=== PATIENT | male | born 1955 | race African-American/Black ===

== ENCOUNTER 2017-01-29 02:05 | Inpatient (IN) | payer BC, OTHER ==
[~2017-01-29] VITALS: Ht 172.7 cm; Wt 92.5 kg
[2017-01-29 03:10] LABS: BASO % 1 % (0-3); EOS % 4 % (0-3); HEMATOCRIT 39.5 % (39.0-53.0); HEMOGLOBIN 13.1 g/dL (13.0-17.5); LYMPH # 1.4 x10^3/uL (1.0-4.8); LYMPH % 28 % (24-48); MEAN CORPUSCULAR HEMOGLOBIN 30 pg (25-35); MEAN CORPUSCULAR HGB CONC 33 g/dL (31-37); MEAN CORPUSCULAR VOLUME 89 fL (79-100); MONO % 7 % (0-9); NEUT % 60 % (31-73); PLATELET COUNT 300 x10^3/uL (140-400); RED BLOOD COUNT 4.43 x10^6/uL (4.30-5.70); RED CELL DISTRIBUTION WIDTH 14.5 % (11.5-14.5); WHITE BLOOD COUNT 4.8 x10^3/uL (4.0-11.0)
[2017-01-29 03:34] LABS: PROTHROMBIN TIME PATIENT 12.5 SEC (11.7-14.0)
[2017-01-29 03:36] LABS: CALCIUM 9.4 mg/dL (8.5-10.1); CREATININE 1.1 mg/dL (0.7-1.3); GFR 82.6; POTASSIUM 4.2 mmol/L (3.5-5.1)
[2017-01-29 03:42] LABS: ALBUMIN 4.5 g/dL (3.4-5.0); DIRECT BILIRUBIN 0.1 mg/dL (0.0-0.2); TOTAL BILIRUBIN 0.5 mg/dL (0.2-1.0); TOTAL PROTEIN 7.5 g/dL (6.4-8.2)
--- NOTE | 2017-01-29 04:14 | PHYS DOC ---
Past Medical History Past Medical History: Diabetes-Type II, High Cholesterol, Hypertension Past Surgical History: No Surgical History Alcohol Use: Rarely Drug Use: None Adult General Chief Complaint Chief Complaint: CHEST PAIN HPI HPI 61-year-old male presenting to the emergency department today with chest pain. He describes the chest pain on his right side that is sharp shooting nonradiating intermittent and without a alleviating factors. He denies unilateral leg swelling hemoptysis or personal history of blood clotting disorders. He denies it being worse when he lays down. He denies fevers chills or cough. Patient has a history of diabetes and cholesterol with high blood pressure. He denies family history of heart disease. He has a long smoking history. Review of systems is negative for fevers chills cough abdominal pain nausea vomiting or diaphoresis. All other review of systems is negative unless otherwise noted in history of present illness. ED course: 61-year-old gentleman presenting to the emergency department today with chest pain. On arrival the patient was afebrile saturating well and comfortable. On examination, regular rate and rhythm. Abdomen is soft and nontender. EKG reviewed by myself shows sinus rhythm with a regular rate. ST segments are congruent. T-wave flattening in lead 3 and aVF. Chest x-ray obtained and reviewed by myself shows no obvious infiltrate or pneumothorax. Blood work obtained which showed negative troponin. Negative initial workup. Heart score calculated below. Patient was then admitted for serial troponins and cardiac consultation. I have assessed this patient clinically and believe that their condition requires an admission to the hospital. After consulting the admitting physician about this case, they have asked that I admit this patient to their service as an inpatient based on the clinical presentation and my impression. HEART SCORE History Slightly suspicious 0 Moderately suspicious +1 Highly suspicious +2 EKG 1 point: No ST depression but LBBB, LVH, repolarization changes (ex: digoxin); 2 points: ST depression/elevation not due to LBBB, LVH, or digoxin Normal 0 Non-specific repolarization disturbance +[address] depression +2 Age <45 0 45-65 +1 65 +2 Risk factors Risk factors: HTN, hypercholesterolemia, DM, obesity (BMI >30 kg/m), smoking (current, or smoking cessation 3 mo), positive family history (parent or sibling with CVD before age 65); atherosclerotic disease: prior IA, PCI/CABG, CVA/TIA, or peripheral arterial disease No known risk factors 0 1-2 risk factors +1 3 risk factors or history of atherosclerotic disease +2 Initial troponin Use local assays and corresponding cutoffs normal limit 0 1-2 normal limit +1 >2 normal limit +2 Total points : 4 Review of Systems Review of Systems SEE ABOVE. Current Medications Current Medications Current Medications Medications (Trade) Dose Ordered Sig/Daniel Start Time Stop Time Status Last Admin Dose Admin Morphine Sulfate 2 mg PRN Q2HR PRN 01/29/17 04:15 01/30/17 04:14 Ondansetron HCl (Zofran) 4 mg PRN Q8HRS PRN 01/29/17 04:15 01/30/17 04:14 Allergies Allergies Allergies Coded Allergies Type Severity Reaction Last Updated Verified No Known Drug Allergies 02/09/14 No Physical Exam Physical Exam SEE ABOVE Constitutional: Well developed, well nourished, no acute distress, non-toxic appearance. HENT: Normocephalic, atraumatic, bilateral external ears normal, oropharynx moist, no oral exudates, nose normal. [] Eyes: PERRLA, EOMI, conjunctiva normal, no discharge. [] Neck: Normal range of motion, no tenderness, supple, no stridor. Cardiovascular:Heart rate regular rhythm, no murmur [] Lungs & Thorax: Bilateral breath sounds clear to auscultation Abdomen: Bowel sounds normal, soft, no tenderness, no masses, no pulsatile masses. [] Skin: Warm, dry, no erythema, no rash. [] Back: No tenderness, no CVA tenderness. Extremities: No tenderness, no cyanosis, no clubbing, ROM intact, no edema. Neurologic: Alert and oriented X 3, normal motor function, normal sensory function, no focal deficits noted. [] Psychologic: Affect normal, judgement normal, mood normal. [] Current Patient Data Vital Signs Vital Signs Date Time Temp Pulse Resp B/P (MAP) Pulse Ox O2 Delivery O2 Flow Rate FiO2 01/29/17 02:33 97.8 74 17 125/64 (84) 97 Room Air 97.8 Lab Values Laboratory Tests Test 01/29/17 02:58 White Blood Count 4.8 x10^3/uL (4.0-11.0) Red Blood Count 4.43 x10^6/uL (4.30-5.70) Hemoglobin 13.1 g/dL (13.0-17.5) Hematocrit 39.5 % (39.0-53.0) Mean Corpuscular Volume 89 fL (79-100) Mean Corpuscular Hemoglobin 30 pg (25-35) Mean Corpuscular Hemoglobin Concent 33 g/dL (31-37) Red Cell Distribution Width 14.5 % (11.5-14.5) Platelet Count 300 x10^3/uL (140-400) Neutrophils (%) (Auto) 60 % (31-73) Lymphocytes (%) (Auto) 28 % (24-48) Monocytes (%) (Auto) 7 % (0-9) Eosinophils (%) (Auto) 4 % (0-3) H Basophils (%) (Auto) 1 % (0-3) Neutrophils # (Auto) 2.9 x10^3uL (1.8-7.7) Lymphocytes # (Auto) 1.4 x10^3/uL (1.0-4.8) Monocytes # (Auto) 0.4 x10^3/uL (0.0-1.1) Eosinophils # (Auto) 0.2 x10^3/uL (0.0-0.7) Basophils # (Auto) 0.0 x10^3/uL (0.0-0.2) Prothrombin Time 12.5 SEC (11.7-14.0) Prothrombin Time INR 1.0 (0.8-1.1) PTT 36 SEC (24-38) Sodium Level 139 mmol/L (136-145) Potassium Level 4.2 mmol/L (3.5-5.1) Chloride Level 101 mmol/L (98-107) Carbon Dioxide Level 29 mmol/L (21-32) Anion Gap 9 (6-14) Blood Urea Nitrogen 16 mg/dL (8-26) Creatinine 1.1 mg/dL (0.7-1.3) Estimated GFR (Cockcroft-Gault) 82.6 Glucose Level 219 mg/dL (70-99) H Calcium Level 9.4 mg/dL (8.5-10.1) Total Bilirubin 0.5 mg/dL (0.2-1.0) Direct Bilirubin 0.1 mg/dL (0.0-0.2) Aspartate Amino Transferase (AST) 25 U/L (15-37) Alanine Aminotransferase (ALT) 36 U/L (16-63) Alkaline Phosphatase 142 U/L (46-116) H Troponin I Quantitative < 0.017 ng/mL (0.000-0.055) UM-Bwp-A-Type Natriuretic Peptide 51 pg/mL (0-124) Total Protein 7.5 g/dL (6.4-8.2) Albumin 4.5 g/dL (3.4-5.0) Lipase 106 U/L (73-393) Laboratory Tests 01/29/17 02:58 Laboratory Tests 01/29/17 02:58 EKG EKG [] Radiology/Procedures Radiology/Procedures [] Course & Med Decision Making Course & Med Decision Making Pertinent Labs and Imaging studies reviewed. (See chart for details) [] Dragon Disclaimer Dragon Disclaimer This electronic medical record was generated, in whole or in part, using a voice recognition dictation system. Departure Departure Impression: Primary Impression: Chest pain Disposition: 01 HOME, SELF-CARE Admitting Physician: Other (reusch) Condition: STABLE Referrals: NO PCP (PCP) PAXTON GUILLEN MD Jan 29, 2017 04:14
[2017-01-29] MEDS ORDERED: MORPHINE SULFATE 2 MG/ML DISP.SYRIN. IV PRN (04:15)
[2017-01-29] MEDS ORDERED: ONDANSETRON PF 4 MG/2 ML VIAL. IV PRN (04:15)
--- NOTE | 2017-01-29 07:59 | RAD ---
CHEST AP ONLY Clinical Indication: chest pain Comparison: None. Technique: Frontal view of the chest is obtained. Findings: No focal consolidation, pleural effusion or pneumothorax is seen. Cardiomediastinal silhouette is within normal limits of size. Visualized osseous structures and overlying soft tissues demonstrate no acute finding. IMPRESSION: No focal consolidation or acute radiographic finding.
[2017-01-29 08:00] VITALS: BP 111/67
--- NOTE | 2017-01-29 09:10 | EKG ---
[facility] [address] [place] [address] Test Date: 2017-01-29 Test Time: 02:24:54 Pat Name: ALDEN HERNANDEZ Department: Room: Gender: M Taxonomist: : 1955 Requested By: PAXTON GUILLEN Order Number: [id number] Reading MD: Measurements Intervals [place] Rate: 75 P: 63 WV: 188 QRS: 47 QRSD: 78 T: 26 QT: 374 QTc: 420 Interpretive Statements SINUS RHYTHM NO SPECIFIC ECG ABNORMALITIES RI6.01 No previous ECG available for comparison
[2017-01-29] MEDS ORDERED: CETI10TA22 PO (10:25)
[2017-01-29] MEDS ORDERED: ALBI50PE SQ (10:25)
[2017-01-29] MEDS ORDERED: METF-620 PO (10:25)
[2017-01-29] MEDS ORDERED: LOSA25TA4 PO (10:25)
[2017-01-29] MEDS ORDERED: GLIM4TAB2 PO (10:25)
[2017-01-29] MEDS ORDERED: SIMV40TA3 PO (10:25)
--- NOTE | 2017-01-29 10:52 | CONS ---
DATE OF CONSULTATION: 01/29/2017 REASON FOR CONSULTATION: Chest pain. HISTORY OF PRESENT ILLNESS: Chest pain onset Tuesday at 11:00 a.m. while sleeping, upon waking. Pain was right anterior chest, radiation to thoracic back bilaterally. The patient described it as cramping, 10/10. It was waxing and waning, lasting hours, provoked with supine position and while lifting boxes, otherwise nonexertional, palliative with naproxen, now resolving and 5/10. Prior EKG years ago was normal. No history of stress test, echocardiogram or catheterization. His similar episode of pain 15 years ago presented with shortness of breath with sharp substernal chest pain, presented to the ED and was diagnosed with GERD, came to the ED today at 2:00 a.m. Notes some shortness of breath. It is mild. Denies any diaphoresis, nausea, vomiting, syncope, palpitations, fever, edema, abdominal pain, focal weakness, urinary changes, no recent trauma, no recent surgeries, travel or sick contacts. PAST MEDICAL HISTORY: GERD, type 2 diabetes for 7 years, hypertension, hyperlipidemia, back pain, no history of malignancy. PAST SURGICAL HISTORY: None. ALLERGIES: No allergies to medications. FAMILY HISTORY: Sister, congestive heart failure, alive; father, , age 74, type 2 diabetes complications associated; mother , unknown age or cause of . SOCIAL HISTORY: Former tobacco smoker 7 years ago, quit, rare alcohol usage, no drugs. No history of cocaine use. MEDICATIONS: Metformin, glimepiride, simvastatin, losartan. PHYSICAL EXAMINATION: VITAL SIGNS: 97.5, heart rate 79, respiratory rate 18, 111/67 blood pressure and O2 of 100% on room air. GENERAL: No acute distress.. HEENT: Mucous membranes moist. PULM: Clear to auscultation in all alvarez. No rales, wheezes or rhonchi. CARDIAC: Regular rate and rhythm, no murmurs. Pulses intact in bilateral upper and lower extremities. ABDOMEN: No tenderness in all alvarez. No masses, no guarding. EXTREMITIES: Lower extremity, no edema. LABORATORY DATA: CBC is normal. CMP is normal with mild elevation of alkaline phosphatase and glucose. Troponin is normal. Chest x-ray was unremarkable. EKG is pending. IMPRESSION: 1. Atypical chest pain in a type 2 diabetic male with multiple risk factors. 2. Hypertension. 3. Dyslipidemia. 4. Type 2 diabetes. Differential include gastroesophageal reflux disease and thoracic back pain. RECOMMENDATIONS: Continue home medical therapy. Treadmill nuclear stress test. CELIA RIVERO MD DR: OSCAR/ernesto JOB#: [id number] / [id number]
[2017-01-29 11:40] VITALS: BP 120/72
[2017-01-29] MEDS ORDERED: DEXTROSE 50% 25 GM / 50ML DISP.SYRIN. IV PRN (12:45)
--- NOTE | 2017-01-29 12:49 | PDOC1 ---
History and Physical Date of Admission Date of Admission 01/29/17 Identification/Chief Complaint Chief Complaint chest pain Problems: Source Source: Chart review, Patient History of Present Illness History of Present Illness 61-year-old male presenting to the emergency department today with chest pain. He describes the chest pain on his right side that is sharp shooting nonradiating intermittent and without a alleviating factors. He denies unilateral leg swelling hemoptysis or personal history of blood clotting disorders. He denies it being worse when he lays down. He denies fevers chills or cough. Patient has a history of diabetes and cholesterol with high blood pressure. He denies family history of heart disease. He has a long smoking history. he does have nausea , pain since yesterday after eating [employer] , denies being bothered by greasy food in past, no previous gallbladder disease Hx, + ETOH occasional , none lately Past Medical History Cardiovascular: HTN, Hyperlipidemia Pulmonary: COPD GI: GERD Heme/Onc: No pertinent hx Hepatobiliary: No pertinent hx Psych: No pertinent hx Rheumatologic: No pertinent hx Infectious disease: No pertinent hx ENT: No pertinent hx Renal/: Chronic renal insuff Endocrine: Diabetes Dermatology: No pertinent hx Family History Family History: Diabetes, High Cholestrol, Hypertension Social History Smoke: 1 pack per day ALCOHOL: occassional Drugs: None Current Problem List Problem List Problems Medical Problems: (1) Chest pain Status: Acute Current Medications Current Medications Current Medications Medications (Trade) Dose Ordered Sig/Daniel Start Time Stop Time Status Last Admin Dose Admin Morphine Sulfate 2 mg PRN Q2HR PRN 01/29/17 04:15 01/30/17 04:14 Ondansetron HCl (Zofran) 4 mg PRN Q8HRS PRN 01/29/17 04:15 01/30/17 04:14 Allergies Allergies Allergies Coded Allergies Type Severity Reaction Last Updated Verified No Known Drug Allergies 02/09/14 No ROS Review of System CONSTITUTIONAL: No fever or chills EYES: No recent changes SKIN: No rash or itching CARDIOVASCULAR: see HPI , NO syncope, palpitations, or edema RESPIRATORY: No SOB or cough GASTROINTESTINAL: + nausea, NO vomiting + RUQ pain NEUROLOGICAL: No headaches or weakness ENDOCRINE: No cold or heat intolerance GENITOURINARY: No urgency or frequency of urination MUSCULOSKELETAL: No back pain or joint pain LYMPHATICS: No enlarged lymph nodes PSYCHIATRIC: No anxiety or depression Physical Exam Physical Exam GEN.: No apparent distress. Alert and oriented. HEENT: Head is normocephalic, atraumatic NECK: Supple. LUNGS: Clear to auscultation. HEART: RRR, S1, S2 present. Peripheral pulses intact ABDOMEN: Soft, mild RUQ tenderness. Positive bowel sounds. EXTREMITIES: Without any cyanosis. NEUROLOGIC: Normal speech, normal tone PSYCHIATRIC: Normal affect, normal mood. SKIN: No ulcerations Vitals Vitals Vital Signs Date Time Temp Pulse Resp B/P (MAP) Pulse Ox O2 Delivery O2 Flow Rate FiO2 01/29/17 11:40 98.1 74 18 120/72 (88) 97 Room Air 98.1 Labs Labs Laboratory Tests Test 01/29/17 02:58 01/29/17 08:08 01/29/17 10:30 01/29/17 11:54 White Blood Count 4.8 x10^3/uL (4.0-11.0) Red Blood Count 4.43 x10^6/uL (4.30-5.70) Hemoglobin 13.1 g/dL (13.0-17.5) Hematocrit 39.5 % (39.0-53.0) Mean Corpuscular Volume 89 fL (79-100) Mean Corpuscular Hemoglobin 30 pg (25-35) Mean Corpuscular Hemoglobin Concent 33 g/dL (31-37) Red Cell Distribution Width 14.5 % (11.5-14.5) Platelet Count 300 x10^3/uL (140-400) Neutrophils (%) (Auto) 60 % (31-73) Lymphocytes (%) (Auto) 28 % (24-48) Monocytes (%) (Auto) 7 % (0-9) Eosinophils (%) (Auto) 4 % (0-3) Basophils (%) (Auto) 1 % (0-3) Neutrophils # (Auto) 2.9 x10^3uL (1.8-7.7) Lymphocytes # (Auto) 1.4 x10^3/uL (1.0-4.8) Monocytes # (Auto) 0.4 x10^3/uL (0.0-1.1) Eosinophils # (Auto) 0.2 x10^3/uL (0.0-0.7) Basophils # (Auto) 0.0 x10^3/uL (0.0-0.2) Prothrombin Time 12.5 SEC (11.7-14.0) Prothromb Time International Ratio 1.0 (0.8-1.1) Activated Partial Thromboplast Time 36 SEC (24-38) Sodium Level 139 mmol/L (136-145) Potassium Level 4.2 mmol/L (3.5-5.1) Chloride Level 101 mmol/L (98-107) Carbon Dioxide Level 29 mmol/L (21-32) Anion Gap 9 (6-14) Blood Urea Nitrogen 16 mg/dL (8-26) Creatinine 1.1 mg/dL (0.7-1.3) Estimated GFR (Cockcroft-Gault) 82.6 Glucose Level 219 mg/dL (70-99) Calcium Level 9.4 mg/dL (8.5-10.1) Total Bilirubin 0.5 mg/dL (0.2-1.0) Direct Bilirubin 0.1 mg/dL (0.0-0.2) Aspartate Amino Transf (AST/SGOT) 25 U/L (15-37) Alanine Aminotransferase (ALT/SGPT) 36 U/L (16-63) Alkaline Phosphatase 142 U/L (46-116) Troponin I Quantitative < 0.017 ng/mL (0.000-0.055) < 0.017 ng/mL (0.000-0.055) GV-Hzy-E-Type Natriuretic Peptide 51 pg/mL (0-124) Total Protein 7.5 g/dL (6.4-8.2) Albumin 4.5 g/dL (3.4-5.0) Lipase 106 U/L (73-393) Glucose (Fingerstick) 97 mg/dL (70-99) 271 mg/dL (70-99) Laboratory Tests Test 01/29/17 02:58 01/29/17 08:08 01/29/17 10:30 01/29/17 11:54 White Blood Count 4.8 x10^3/uL (4.0-11.0) Red Blood Count 4.43 x10^6/uL (4.30-5.70) Hemoglobin 13.1 g/dL (13.0-17.5) Hematocrit 39.5 % (39.0-53.0) Mean Corpuscular Volume 89 fL (79-100) Mean Corpuscular Hemoglobin 30 pg (25-35) Mean Corpuscular Hemoglobin Concent 33 g/dL (31-37) Red Cell Distribution Width 14.5 % (11.5-14.5) Platelet Count 300 x10^3/uL (140-400) Neutrophils (%) (Auto) 60 % (31-73) Lymphocytes (%) (Auto) 28 % (24-48) Monocytes (%) (Auto) 7 % (0-9) Eosinophils (%) (Auto) 4 % (0-3) Basophils (%) (Auto) 1 % (0-3) Neutrophils # (Auto) 2.9 x10^3uL (1.8-7.7) Lymphocytes # (Auto) 1.4 x10^3/uL (1.0-4.8) Monocytes # (Auto) 0.4 x10^3/uL (0.0-1.1) Eosinophils # (Auto) 0.2 x10^3/uL (0.0-0.7) Basophils # (Auto) 0.0 x10^3/uL (0.0-0.2) Prothrombin Time 12.5 SEC (11.7-14.0) Prothromb Time International Ratio 1.0 (0.8-1.1) Activated Partial Thromboplast Time 36 SEC (24-38) Sodium Level 139 mmol/L (136-145) Potassium Level 4.2 mmol/L (3.5-5.1) Chloride Level 101 mmol/L (98-107) Carbon Dioxide Level 29 mmol/L (21-32) Anion Gap 9 (6-14) Blood Urea Nitrogen 16 mg/dL (8-26) Creatinine 1.1 mg/dL (0.7-1.3) Estimated GFR (Cockcroft-Gault) 82.6 Glucose Level 219 mg/dL (70-99) Calcium Level 9.4 mg/dL (8.5-10.1) Total Bilirubin 0.5 mg/dL (0.2-1.0) Direct Bilirubin 0.1 mg/dL (0.0-0.2) Aspartate Amino Transf (AST/SGOT) 25 U/L (15-37) Alanine Aminotransferase (ALT/SGPT) 36 U/L (16-63) Alkaline Phosphatase 142 U/L (46-116) Troponin I Quantitative < 0.017 ng/mL (0.000-0.055) < 0.017 ng/mL (0.000-0.055) VF-Nfg-O-Type Natriuretic Peptide 51 pg/mL (0-124) Total Protein 7.5 g/dL (6.4-8.2) Albumin 4.5 g/dL (3.4-5.0) Lipase 106 U/L (73-393) Glucose (Fingerstick) 97 mg/dL (70-99) 271 mg/dL (70-99) VTE Prophylaxis Ordered VTE Prophylaxis Devices: Yes VTE Pharmacological Prophylaxi: Yes Assessment/Plan Assessment/Plan 1- RUQ pain and CP, start PPI, chech abd US, C.V work up due to risk factors 2-HTN 3-HLD 4-DM II 5- Obesity 6- high alk akhils CRISTINA DANIELLE MD Jan 29, 2017 12:49
[2017-01-29] MEDS: INSULIN ASPART 300 UNITS/3 ML INSULN.PEN SQ SCH ×2 (13:00→17:00)
[2017-01-29] MEDS: ENOXAPARIN 40 MG/0.4 ML SYRINGE. SQ SCH (13:00)
[2017-01-29] MEDS: GLIMEPIRIDE 2 MG TABLET. PO SCH (14:00)
[2017-01-29] MEDS: ASPIRIN ENTERIC COATED 81 MG TABLET.DR. PO SCH (14:00)
[2017-01-29] MEDS: LOSARTAN POTASSIUM 25 MG TABLET. PO SCH (14:00)
[2017-01-29] MEDS: PANTOPRAZOLE 40 MG TABLET.DR. PO SCH (14:01)
[2017-01-29] MEDS: CETIRIZINE HCL 10 MG TABLET. PO SCH (14:01)
[2017-01-29 14:56] VITALS: BP 126/66
[2017-01-29 19:45] VITALS: BP 120/69
[2017-01-29] MEDS: SIMVASTATIN 40 MG TABLET. PO SCH (20:09)
[2017-01-29 23:46] VITALS: BP 111/64
[2017-01-30 03:35] VITALS: BP 93/59
[2017-01-30 04:44] LABS: BASO % 1 % (0-3); EOS % 5 % (0-3); HEMOGLOBIN 12.7 g/dL (13.0-17.5); LYMPH # 1.1 x10^3/uL (1.0-4.8); LYMPH % 28 % (24-48); MEAN CORPUSCULAR HEMOGLOBIN 30 pg (25-35); MEAN CORPUSCULAR HGB CONC 34 g/dL (31-37); MEAN CORPUSCULAR VOLUME 88 fL (79-100); MONO % 8 % (0-9); NEUT % 59 % (31-73); PLATELET COUNT 266 x10^3/uL (140-400); RED CELL DISTRIBUTION WIDTH 14.6 % (11.5-14.5); WHITE BLOOD COUNT 4.1 x10^3/uL (4.0-11.0)
[2017-01-30 05:13] LABS: ALBUMIN 3.5 g/dL (3.4-5.0); ALBUMIN/GLOBULIN RATIO 1.1 (1.0-1.7); CALCIUM 8.6 mg/dL (8.5-10.1); CREATININE 0.9 mg/dL (0.7-1.3); GFR 104.2; POTASSIUM 3.9 mmol/L (3.5-5.1); TOTAL BILIRUBIN 0.4 mg/dL (0.2-1.0); TOTAL PROTEIN 6.7 g/dL (6.4-8.2)
[2017-01-30 07:02] VITALS: BP 111/65
[2017-01-30] MEDS: INSULIN ASPART 300 UNITS/3 ML INSULN.PEN SQ SCH ×3 (08:00→17:00)
--- NOTE | 2017-01-30 09:58 | RAD ---
ABDOMEN COMPLETE Clinical Indication: RUQ pain, Comparison: None. Technique: Transverse and longitudinal sonography of the abdomen is performed. Findings: Visualized portions of the proximal pancreas demonstrate no focal abnormality. Mid and distal pancreas are obscured. Aorta appears normal in caliber area IVC is documented. The gallbladder demonstrates no intraluminal gallstones, wall thickening or pericholecystic fluid. Main portal vein demonstrates normal directional flow and phasicity. Common bile duct measures 3 mm in diameter. Liver demonstrates diffuse increased echogenicity consistent with steatosis. Liver measures 15.6 cm. The right kidney measures 10.5 x 6.0 x 6.0 cm, without evidence of hydronephrosis. The left kidney measures 10.1 x 5.9 x 5.9 cm, without evidence of hydronephrosis. Spleen measures 8.1 cm. No free fluid is seen within the provided images. IMPRESSION: Hepatic steatosis. No cholelithiasis or hydronephrosis.
[2017-01-30] MEDS: CETIRIZINE HCL 10 MG TABLET. PO SCH (11:00)
[2017-01-30] MEDS: ASPIRIN ENTERIC COATED 81 MG TABLET.DR. PO SCH (11:00)
[2017-01-30] MEDS: LOSARTAN POTASSIUM 25 MG TABLET. PO SCH (11:01)
[2017-01-30] MEDS: GLIMEPIRIDE 2 MG TABLET. PO SCH (11:01)
[2017-01-30] MEDS: PANTOPRAZOLE 40 MG TABLET.DR. PO SCH (11:01)
[2017-01-30 11:05] VITALS: BP 116/64
[2017-01-30] MEDS: ENOXAPARIN 40 MG/0.4 ML SYRINGE. SQ SCH (13:00)
--- NOTE | 2017-01-30 14:39 | RAD ---
APPROVED REPORT Test Type: Exercise Stress Nurse/Tech: Jayshree Palmer R.N. Test Indications: chest pain Cardiac History: htn, dm Medications: see ehr Medical History: see ehr Resting ECG: SR Resting Heart Rate: 67 bpm Resting Blood Pressure: 112/68mmHg Pretest Chest Pain: No chest pain Nurse/Tech Notes lungs cta, heart tones regular, good radial pulse Consent: The procedure was explained to the patient in lay terms. Informed consent was witnessed. Kannan eout was entered into [employer]. History and Stress Test performed by RT Morgan (Nolvia) (N) Stress Symptoms No chest pain or symptoms. POST EXERCISE Reason for Termination: Reached target heart rate Target HR: Yes Max HR: 142 bpm 89% of Maximum Predicted HR: 160 bpm Exercise duration: 5:45 min:sec, Stage Exercise capacity: 7.0METs Max Blood Pressure: 149/85mmHg Blood Pressure response to exercise: Normal blood pressure response during stress. Heart Rate response to exercise: normal Chest Pain: No. Arrhythmia: No. ST Change: Yes. [address] depression in V3-6 during exercise which resolved with rest INTERPRETATION Stress EKG Conclusion: No acute ischemic findings Imaging Protocol IMAGE PROTOCOL: Stress Tc-99m/rest Tc-99m 2 days Rest: Stress: Viability: Radiopharm.Tc99m Sestamibi [id number] Duration 10min. Img Date 01/30/2017 Inj-Img [id number]. Stress Admin Site: IV - Right AntecubitalAdministrator: RT Morgan (R)(N) STRESS DATA End Diast. Vol.107.0mlAv. Heart Rate86.0bpm End Syst. Vol.37.0mlCO Index BSA0.0L/min Myocardial Igua317.0gEject. Klqmluvm97.0% Stress Rates Pk. Fill Rate2.99EDV/secLVtime Pk. Fill 146.48msec Pk. Empty Rate3.81ESV/secLVtime Pk. Eftyo950.95msec 03/02 Pk. Fill1.52EDV/sec Stress Scores Regional WT0.00Summed WT0.00 Regional WM0.00Summed WM1.00 LV Perfusion Normal perfusion at stress Wall Motion Normal LV Perf. Quant 17 Seg. SSS0.00 Stress Defect Extent (% LAD)0.00Rest Defect Extent (% LAD)Rev. Defect Extent (% LAD)0.00 Stress Defect Extent (% LCX) 0.00Rest Defect Extent (% LCX)Rev. Defect Extent (% LCX)0.00 Stress Defect Extent (% RCA)0.00Rest Defect Extent (% RCA)Rev. Defect Extent (% RCA)0.00 Stress Defect Extent (% BRI)0.00Rest Defect Extent (% BRI)Rev. Defect Extent (% BRI)0.00 Other Information Quality:Good Risk Assessment: Low Risk Conclusion 1. No evidence of EKG changes with stress testing. Average exercise capacity. 2. Normal perfusion at stress. 3. Low risk study. 4. EF > 60%.
[2017-01-30 14:48] VITALS: BP 115/55
--- NOTE | 2017-01-30 15:36 | PDOC ---
SUBJECTIVE Subjective continuw with pain mostly RUQ OBJECTIVE Vital Signs Vital Signs Date Time Temp Pulse Resp B/P (MAP) Pulse Ox O2 Delivery O2 Flow Rate FiO2 01/30/17 14:48 98.3 74 17 115/55 (75) 96 Room Air 98.3 01/30/17 11:05 98.6 82 18 116/64 (81) 98 Room Air 98.6 01/30/17 11:01 52 111/65 01/30/17 08:00 Room Air 01/30/17 07:02 98.3 52 17 111/65 (80) 98 Room Air 98.3 01/30/17 03:35 98.2 68 18 93/59 (70) 97 Room Air 98.2 01/30/17 01:12 Room Air 01/29/17 23:46 98.5 63 18 111/64 (80) 95 Room Air 98.5 01/29/17 20:00 Room Air 01/29/17 19:45 98.3 71 20 120/69 (86) 97 Room Air 98.3 I & O Intake and Output 01/30/17 07:00 Intake Total 750 ml Balance 750 ml Intake Oral 750 ml # Voids 4 PHYSICAL EXAM Physical Exam no change ASSESSMENT/PLAN Assessment/Plan 1- RUQ pain and CP, start PPI, abd US negative ,check PIPIDA , cardiac eval in process 2-HTN 3-HLD 4-DM II 5- Obesity 6- high alk phos Problems: COMMENT Lab Laboratory Tests Test 01/29/17 16:00 01/29/17 20:49 01/30/17 03:50 01/30/17 07:02 Troponin I Quantitative < 0.017 ng/mL (0.000-0.055) Glucose (Fingerstick) 171 mg/dL (70-99) 105 mg/dL (70-99) White Blood Count 4.1 x10^3/uL (4.0-11.0) Red Blood Count 4.30 x10^6/uL (4.30-5.70) Hemoglobin 12.7 g/dL (13.0-17.5) Hematocrit 38.0 % (39.0-53.0) Mean Corpuscular Volume 88 fL (79-100) Mean Corpuscular Hemoglobin 30 pg (25-35) Mean Corpuscular Hemoglobin Concent 34 g/dL (31-37) Red Cell Distribution Width 14.6 % (11.5-14.5) Platelet Count 266 x10^3/uL (140-400) Neutrophils (%) (Auto) 59 % (31-73) Lymphocytes (%) (Auto) 28 % (24-48) Monocytes (%) (Auto) 8 % (0-9) Eosinophils (%) (Auto) 5 % (0-3) Basophils (%) (Auto) 1 % (0-3) Neutrophils # (Auto) 2.4 x10^3uL (1.8-7.7) Lymphocytes # (Auto) 1.1 x10^3/uL (1.0-4.8) Monocytes # (Auto) 0.3 x10^3/uL (0.0-1.1) Eosinophils # (Auto) 0.2 x10^3/uL (0.0-0.7) Basophils # (Auto) 0.0 x10^3/uL (0.0-0.2) Sodium Level 138 mmol/L (136-145) Potassium Level 3.9 mmol/L (3.5-5.1) Chloride Level 104 mmol/L (98-107) Carbon Dioxide Level 27 mmol/L (21-32) Anion Gap 7 (6-14) Blood Urea Nitrogen 13 mg/dL (8-26) Creatinine 0.9 mg/dL (0.7-1.3) Estimated GFR (Cockcroft-Gault) 104.2 BUN/Creatinine Ratio 14 (6-20) Glucose Level 150 mg/dL (70-99) Calcium Level 8.6 mg/dL (8.5-10.1) Total Bilirubin 0.4 mg/dL (0.2-1.0) Aspartate Amino Transf (AST/SGOT) 18 U/L (15-37) Alanine Aminotransferase (ALT/SGPT) 27 U/L (16-63) Alkaline Phosphatase 104 U/L (46-116) Total Protein 6.7 g/dL (6.4-8.2) Albumin 3.5 g/dL (3.4-5.0) Albumin/Globulin Ratio 1.1 (1.0-1.7) CRISTINA DANIELLE MD Jan 30, 2017 15:36
[2017-01-30 19:51] VITALS: BP 97/53
[2017-01-30] MEDS: SIMVASTATIN 40 MG TABLET. PO SCH (21:04)
[2017-01-30] MEDS ORDERED: KETOROLAC 30 MG/ML INJ. IV PRN (22:45)
[2017-01-30 23:44] VITALS: BP 100/52
[2017-01-31 03:47] VITALS: BP 101/54
[2017-01-31 06:59] VITALS: BP 118/70
[2017-01-31] MEDS: INSULIN ASPART 300 UNITS/3 ML INSULN.PEN SQ SCH ×3 (08:00→17:00)
--- NOTE | 2017-01-31 08:11 | PDOC ---
SUBJECTIVE Subjective Continues to have achy, crampy pain in the lower R chest/RUQ. Stress test neg. Abd US neg. PIPIDA scan ordered. OBJECTIVE Objective Reviewed. Vital Signs Vital Signs Date Time Temp Pulse Resp B/P (MAP) Pulse Ox O2 Delivery O2 Flow Rate FiO2 01/31/17 06:59 97.6 70 18 118/70 (86) 97 Room Air 97.6 01/31/17 03:47 97.9 58 20 101/54 (70) 98 Room Air 97.9 01/30/17 23:44 98.4 65 20 100/52 (68) 98 Room Air 98.4 01/30/17 20:30 Room Air 01/30/17 19:51 97.6 66 18 97/53 (68) 97 Room Air 97.6 01/30/17 14:48 98.3 74 17 115/55 (75) 96 Room Air 98.3 01/30/17 11:05 98.6 82 18 116/64 (81) 98 Room Air 98.6 01/30/17 11:01 52 111/65 01/30/17 08:00 Room Air I & O Intake and Output 01/31/17 07:00 Intake Total 1480 ml Balance 1480 ml Intake Oral 1480 ml # Voids 5 PHYSICAL EXAM Physical Exam Alert, oriented RRR, no murmur CTAB no crackles, rhonchi or wheezes, Abd soft, NT, ND, minimal tenderness to palpation of the lower R rib cage No edema ASSESSMENT/PLAN Assessment/Plan RUQ pain and CP, PPI, abd US negative, check PIPIDA , stress test negative - suspect MSK, will rule out gallbladder HTN HLD DM II Obesity high alk phos Stop tele. Lidocaine patch for pain. Problems: COMMENT Lab Laboratory Tests Test 01/30/17 11:41 01/30/17 16:53 01/31/17 07:03 Glucose (Fingerstick) 271 mg/dL (70-99) 146 mg/dL (70-99) 100 mg/dL (70-99) RENATO DE LA FUENTE MD Jan 31, 2017 08:11
[2017-01-31] MEDS: GLIMEPIRIDE 2 MG TABLET. PO SCH (08:23)
[2017-01-31] MEDS: CETIRIZINE HCL 10 MG TABLET. PO SCH (08:24)
[2017-01-31] MEDS: ASPIRIN ENTERIC COATED 81 MG TABLET.DR. PO SCH (08:24)
[2017-01-31] MEDS: LOSARTAN POTASSIUM 25 MG TABLET. PO SCH (08:24)
[2017-01-31] MEDS: PANTOPRAZOLE 40 MG TABLET.DR. PO SCH (08:24)
[2017-01-31] MEDS: LIDOCAINE (700MG/PATCH) PATCH. TD SCH (10:29)
[2017-01-31 10:58] VITALS: BP 113/57
[2017-01-31] MEDS: ENOXAPARIN 40 MG/0.4 ML SYRINGE. SQ SCH (11:20)
[2017-01-31 13:16] LABS: HEP A IGM ABDY Negative (Negative)
[2017-01-31 14:58] VITALS: BP 121/64
[2017-01-31 19:50] VITALS: BP 113/65
[2017-01-31] MEDS: SIMVASTATIN 40 MG TABLET. PO SCH (20:36)
[2017-01-31 23:20] VITALS: BP 113/74
[2017-02-01 03:53] VITALS: BP 119/67
[2017-02-01 07:00] VITALS: BP 122/89
[2017-02-01] MEDS: PANTOPRAZOLE 40 MG TABLET.DR. PO SCH (07:30)
[2017-02-01] MEDS: INSULIN ASPART 300 UNITS/3 ML INSULN.PEN SQ SCH ×2 (08:00→11:22)
--- NOTE | 2017-02-01 08:01 | PDOC3 ---
Discharge Summary [facility] Discharge Date: Feb 01, 2017 Admitting Diagnosis RUQ abdominal pain, chest pain Problems: Final Diagnosis RUQ abdominal pain, chest wall pain CONSULTS Tricia Procedures MPI stress test, PIPIDA Brief Hospital Course Mr. Rangel is a 61 old male who presented for admission due to RUQ abdominal pain/chest pain. An MPI stress test was low risk. His pain continued, so a PIPIDA scan was ordered. On day of discharge, results of PIPIDA scan are still pending. Pain has resolved with the lidoderm patch. Pt is agreeable to plan for discharge with follow up in 1 week. Given improvement with lidoderm patch, etiology is most likely musculoskeletal. No change to medications. Problems: CONDITION AT DISCHARGE: Improved Diet Diabetic, cardiac diet Scheduled Cetirizine Hcl (Zyrtec), 1 TAB PO DAILY, (Reported) Glimepiride (Glimepiride), 6 MG PO DAILY, (Reported) Losartan Potassium (Losartan Potassium), 25 MG PO DAILY, (Reported) Metformin Hcl (Metformin Hcl), 1,000 MG PO DAILYWBKFT, (Reported) Simvastatin (Simvastatin), 1 TAB PO QHS, (Reported) Miscellaneous Medications Albiglutide (Tanzeum), 50 MG SQ, (Reported) Follow Up [address] Saavedra or RENATO Fong MD Feb 01, 2017 08:01
[2017-02-01] MEDS ORDERED: NORMAL SALINE IV ONE (08:45)
[2017-02-01] MEDS ORDERED: SINCALIDE IV ONE (08:45)
--- NOTE | 2017-02-01 10:36 | RAD ---
Hepatobiliary scan 02/01/2017 Indication: 4 days right upper quadrant pain Comparison study: Right upper quadrant ultrasound February 08, 2017 Discussion: Imaging over the abdomen was performed following the administration of 5.5 mCi of technetium 99m labeled Choletec. Following visualization of the gallbladder 1 25-mcg CCK was administered and imaging over the abdomen was continued. Emptying of the gallbladder was measured. Normal uptake and excretion of radiotracer is seen. The gallbladder is first visualized at approximately 10 minutes. There is no evidence of cholecystitis. Following the administration of CCK gallbladder ejection fraction measures 69% which is within normal limits. Possible reflux of radiotracer into the stomach is noted of uncertain clinical significance. Impression: 1. No scintigraphic evidence of cholecystitis 2. Normal gallbladder ejection fraction
[2017-02-01 11:03] VITALS: BP 112/70
[2017-02-01] MEDS: ASPIRIN ENTERIC COATED 81 MG TABLET.DR. PO SCH (11:15)
[2017-02-01] MEDS: GLIMEPIRIDE 2 MG TABLET. PO SCH (11:16)
[2017-02-01] MEDS: LOSARTAN POTASSIUM 25 MG TABLET. PO SCH (11:16)
[2017-02-01] MEDS: CETIRIZINE HCL 10 MG TABLET. PO SCH (11:16)
[2017-02-01] MEDS: LIDOCAINE (700MG/PATCH) PATCH. TD SCH (11:18)
[2017-02-01] MEDS: ENOXAPARIN 40 MG/0.4 ML SYRINGE. SQ SCH (13:00)
[2017-02-01 14:52] VITALS: BP 114/68
== END 2017-02-01 13:42 | disposition home or self-care (01) | DRG 313 ==
LOC: ER 02:05 → 6 SOUTH 04:12
PROVIDERS: ADMIT Family Medicine; ATTEND Family Medicine
DX: R07.89 Other chest pain (principal); E11.22 Type 2 diabetes mellitus with diabetic chronic kidney disease; E66.9 Obesity, unspecified; E78.5 Hyperlipidemia, unspecified; F17.210 Nicotine dependence, cigarettes, uncomplicated; I12.9 Hypertensive chronic kidney disease with stage 1 through stage 4 chronic kidney disease, or unspecified chronic kidney disease; M54.9 Dorsalgia, unspecified; J44.9 Chronic obstructive pulmonary disease, unspecified; K21.9 Gastro-esophageal reflux disease without esophagitis; N18.9 Chronic kidney disease, unspecified; Z82.49 Family history of ischemic heart disease and other diseases of the circulatory system; Z83.3 Family history of diabetes mellitus
CPT/HCPCS: 36415; 71010; 76700; 78226; 78452; 80048; 80053; 80074; 80076; 82962; 83690; 83880; 84484; 85025; 85610; 85730; 93005; 93017; 96374; 96375; A9500; A9537; J1815; J1885; J2270; J2805; 99285-25

== ENCOUNTER → 2017-09-12 | Outpatient (CLI) | payer BC | END | disposition home or self-care (01) | LOC: KCIC 08:39 | DX: M19.071 Primary osteoarthritis, right ankle and foot (principal); M77.31 Calcaneal spur, right foot; I12.9 Hypertensive chronic kidney disease with stage 1 through stage 4 chronic kidney disease, or unspecified chronic kidney disease; E11.22 Type 2 diabetes mellitus with diabetic chronic kidney disease; N18.9 Chronic kidney disease, unspecified; E78.5 Hyperlipidemia, unspecified; E66.9 Obesity, unspecified; K21.9 Gastro-esophageal reflux disease without esophagitis | CPT/HCPCS: 73610; 73630 ==

== ENCOUNTER → 2017-11-18 | Day surgery (SDC) | payer BC ==
[~2017-11-18] MED LIST: ALBI50PE3 SQ; ASPI-630 PO; CETI10TA22 PO; DICL100G18 TP; DULA1.5P SQ; GLIM4TAB2 PO; IV RINGERS,LACTATED 1000ML 1,000 ML IV SCH; LIDOCAINE 2% PF 2ML VIAL. ONE; LOSA25TA5 PO; METF10007 PO; PROPOFOL 20 ML IV ONE; SIMV40TA3 PO; SITA100T PO
[2017-11-18 08:52] VITALS: BP 103/58
--- NOTE | 2017-11-18 09:38 | HP ---
ADMIT DATE: 11/18/2017 REASON: Colorectal screening. REFERRING PHYSICIAN: Renato Styles MD HISTORY OF PRESENT ILLNESS: A 62-year-old -[place]izen [place] male with past medical history significant for hypertension, diabetes and hyperlipidemia, seen for a screening colon exam. Last exam was 10 years ago, which was unrevealing. Family history is unrevealing for colon cancer. There has been no melena, hematochezia, diarrhea, or constipation. Weight and appetite are stable. He is otherwise without additional complaints. PAST MEDICAL HISTORY: Diabetes, hypertension, hyperlipidemia. ALLERGIES: None. MEDICATIONS: Included aspirin, Voltaren, Trulicity, glimepiride, losartan, metformin, simvastatin, and Januvia. SOCIAL HISTORY: Social drinker and smoker. FAMILY HISTORY: Noncontributory. REVIEW OF SYSTEMS: Per records. PHYSICAL EXAMINATION: GENERAL: Reveals a well-nourished, well-developed -[place]izen [place] male. VITAL SIGNS: Temperature is 97.2, pulse 72, respiration rate 18, blood pressure is 148/84. HEENT: Reveals normocephalic and atraumatic head. Pupils and extraocular muscles are not tested. Sclerae anicteric. NECK: Supple. LUNGS: Clear. CARDIOVASCULAR: Reveals an S1, S2 without S3, S4 or appreciable murmur. ABDOMEN: Reveals a soft abdomen, normal bowel sounds without appreciable hepatosplenomegaly. EXTREMITIES: Reveals no cyanosis, clubbing, edema. IMPRESSION: Colorectal screening is warranted at this time. Risks and benefits have been previously discussed with the patient including risk of hemorrhage or perforation and he is willing to proceed. RYANNE SMALLWOOD MD DR: PRISCILLA/ernesto JOB#: [id number] / [id number] RENATO Bull MD
== END | disposition home or self-care (01) ==
LOC: ENDOS 06:59
PROVIDERS: ATTEND Internal Medicine Gastroenterology
DX: Z12.11 Encounter for screening for malignant neoplasm of colon (principal); K57.30 Diverticulosis of large intestine without perforation or abscess without bleeding; K64.0 First degree hemorrhoids; I10 Essential (primary) hypertension; E11.9 Type 2 diabetes mellitus without complications; E78.5 Hyperlipidemia, unspecified; Z79.82 Long term (current) use of aspirin; Z79.899 Other long term (current) drug therapy; Z72.89 Other problems related to lifestyle; F17.200 Nicotine dependence, unspecified, uncomplicated; Z79.84 Long term (current) use of oral hypoglycemic drugs
CPT/HCPCS: 45378; J2001; J2704

== ENCOUNTER 2019-12-01 22:18 | Inpatient (IN) | payer BC ==
[~2019-12-01] VITALS: Ht 172.7 cm; Wt 89.9 kg
[~2019-12-01 22:18] MED LIST changes: -CETI10TA22 PO; +CETI10TA74 PO; -DICL100G18 TP; +DICL100G54 TP; -GLIM4TAB2 PO; +GLIM4TAB8 PO; -IV RINGERS,LACTATED 1000ML 1,000 ML IV SCH; -LIDOCAINE 2% PF 2ML VIAL. ONE; -LOSA25TA5 PO; +LOSA25TA54 PO; -PROPOFOL 20 ML IV ONE; +SIMV40TA18 PO; -SIMV40TA3 PO
--- NOTE | 2019-12-01 23:35 | PHYS DOC ---
Past Medical History Past Medical History: Diabetes-Type II, High Cholesterol, Hypertension Past Surgical History: No Surgical History Smoking Status: Former Smoker Additional Information: QUIT 2009 Alcohol Use: Occasionally Drug Use: None General Adult EDM: Chief Complaint: ABDOMINAL PAIN HPI: HPI: Patient is a 64 year old male who presents with a 1 day history of left lower quadrant pain. Patient says the pain was worse yesterday and is currently 4 out of 10 and is cramping in nature starting in the left flank rating to left lower quadrant. Pain is mildly worse with palpation. Patient denies any fevers, chills, cough, vomiting or diarrhea or blood in the stool. Patient denies any hematuria or dysuria. Review of Systems: Review of Systems: Constitutional: Denies fever or chills. [] Eyes: Denies change in visual acuity. [] HENT: Denies nasal congestion or sore throat. [] Respiratory: Denies cough or shortness of breath. [] Cardiovascular: Denies chest pain or edema. [] GI: Complains of abdominal pain but no vomiting, nausea, blood in the stool or diarrhea. : Denies dysuria. [] Musculoskeletal: Complains of left flank pain Integument: Denies rash. [] Neurologic: Denies headache, focal weakness or sensory changes. [] Endocrine: Denies polyuria or polydipsia. [] Lymphatic: Denies swollen glands. [] Psychiatric: Denies depression or anxiety. [] Heart Score: Risk Factors: Risk Factors: DM, Current or recent (<one month) smoker, HTN, HLP, family history of CAD, obesity. Risk Scores: Score 0 - 3: 2.5% MACE over next 6 weeks - Discharge Home Score 4 - 6: 20.3% MACE over next 6 weeks - Admit for Clinical Observation Score 7 - 10: 72.7% MACE over next 6 weeks - Early Invasive Strategies Allergies: Allergies: Allergies Coded Allergies Type Severity Reaction Last Updated Verified No Known Drug Allergies 11/18/17 No Physical Exam: PE: Constitutional: Well developed, well nourished, no acute distress, non-toxic appearance. [] HENT: Normocephalic, atraumatic, bilateral external ears normal, oropharynx moist, no oral exudates, nose normal. [] Eyes: PERRLA, EOMI, conjunctiva normal, no discharge. [] Neck: Normal range of motion, no tenderness, supple, no stridor. [] Cardiovascular:Heart rate regular rhythm, no murmur [] Lungs & Thorax: Bilateral breath sounds clear to auscultation [] Abdomen: Bowel sounds normal, soft, no tenderness, no masses, no pulsatile masses. [] Skin: Warm, dry, no erythema, no rash. [] Back: No tenderness, no CVA tenderness. [] Extremities: No tenderness, no cyanosis, no clubbing, ROM intact, no edema. [] Neurologic: Alert and oriented X 3, normal motor function, normal sensory function, no focal deficits noted. [] Psychologic: Affect normal, judgement normal, mood normal. [] Current Patient Data: Labs: Laboratory Tests Test 12/01/19 23:19 12/01/19 23:45 Urine Collection Type Unknown Urine Color Yellow Urine Clarity Clear Urine pH 5.5 Urine Specific Chama 1.025 Urine Protein Negative mg/dL Urine Glucose (UA) >=1000 mg/dL Urine Ketones (Stick) Trace mg/dL Urine Blood Negative Urine Nitrite Negative Urine Bilirubin Negative Urine Urobilinogen Dipstick 1.0 mg/dL Urine Leukocyte Esterase Negative Urine RBC 0 /HPF Urine WBC Occ /HPF Urine Squamous Epithelial Cells Occ /LPF Urine Bacteria 0 /HPF Urine Mucus Slight /LPF White Blood Count 8.6 x10^3/uL Red Blood Count 4.97 x10^6/uL Hemoglobin 14.6 g/dL Hematocrit 43.4 % Mean Corpuscular Volume 88 fL Mean Corpuscular Hemoglobin 29 pg Mean Corpuscular Hemoglobin Concent 34 g/dL Red Cell Distribution Width 15.3 % Platelet Count 263 x10^3/uL Neutrophils (%) (Auto) 79 % Lymphocytes (%) (Auto) 11 % Monocytes (%) (Auto) 7 % Eosinophils (%) (Auto) 2 % Basophils (%) (Auto) 1 % Neutrophils # (Auto) 6.8 x10^3/uL Lymphocytes # (Auto) 0.9 x10^3/uL Monocytes # (Auto) 0.6 x10^3/uL Eosinophils # (Auto) 0.2 x10^3/uL Basophils # (Auto) 0.1 x10^3/uL Sodium Level 139 mmol/L Potassium Level 3.9 mmol/L Chloride Level 101 mmol/L Carbon Dioxide Level 29 mmol/L Anion Gap 9 Blood Urea Nitrogen 9 mg/dL Creatinine 1.0 mg/dL Estimated GFR (Cockcroft-Gault) 91.3 BUN/Creatinine Ratio 9 Glucose Level 101 mg/dL Calcium Level 8.7 mg/dL Total Bilirubin 0.6 mg/dL Aspartate Amino Transf (AST/SGOT) 14 U/L Alanine Aminotransferase (ALT/SGPT) 27 U/L Alkaline Phosphatase 123 U/L Total Protein 7.8 g/dL Albumin 3.8 g/dL Albumin/Globulin Ratio 1.0 Lipase 79 U/L Current Medications Medications (Trade) Dose Ordered Sig/Daniel Route PRN Reason Start Time Stop Time Status Last Admin Dose Admin Ketorolac Tromethamine (Toradol 15mg Vial) 15 mg 1X ONCE IVP 12/01/19 23:45 12/01/19 23:46 DC 12/01/19 23:42 Sodium Chloride 1,000 ml @ 1,000 mls/hr 1X ONCE IV 12/01/19 23:45 12/02/19 00:44 12/01/19 23:42 Piperacillin Sod/ Tazobactam Sod 3.375 gm/Sodium Chloride 50 ml @ 100 mls/hr 1X ONCE IV 12/02/19 00:30 12/02/19 00:59 Vital Signs: Vital Signs Date Time Temp Pulse Resp B/P (MAP) Pulse Ox O2 Delivery O2 Flow Rate FiO2 12/01/19 23:09 98.4 85 20 150/79 (102) 97 Room Air 98.4 Vital Signs Date Time Temp Pulse Resp B/P (MAP) Pulse Ox O2 Delivery O2 Flow Rate FiO2 12/01/19 23:09 98.4 85 20 150/79 (102) 97 Room Air 98.4 EKG: EKG: [] Radiology/Procedures: Radiology/Procedures: [][facility] [address] [place], [place] [id number] IMAGING REPORT Signed PATIENT: ALDEN HERNANDEZ LACCOUNT: [id number] : 1955 LOCATION: ER AGE: 64 SEX: M EXAM STATUS: REG ER ORD. PHYSICIAN: RYANNE SWENSON MD REASON: llq pain PROCEDURE: CT ABDOMEN PELVIS WO CONTRAST CT abdomen and pelvis without contrast PQRS statement: CT scans at this facility use dose reduction including either automated exposure control, iterative reconstructions, and /or weight based radiation dosing via mA and kV modification when appropriate to reduce radiation dose to as low as reasonably achievable. HISTORY: Left lower quadrant abdominal pain. Abdomen findings: Lung bases unremarkable. Lumbar disc disease, there is a large upper L3 vertebral body 1.3 cm lytic lesion breaching the superior endplate with surrounding bony sclerosis, suspected to be a large Schmorl's node from disc disease. Liver, gallbladder, spleen, adrenal glands, pancreas unremarkable. There is mild bilateral perinephric edema. No urinary calculi or hydronephrosis. Appendix is negative. Sigmoid diverticulosis, there is diverticulitis with long segment wall thickening and a perforated diverticulum with small bubbles of air and surrounding edema, there is exuberant irregular mucosal and submucosal wall thickening due to inflammation and underlying malignant lesion cannot be excluded. No pneumoperitoneum. No abdominal free fluid or obvious fluid collection to suggest abscess. Pelvis findings: No bladder calculi. Prostate, rectum and bones are unremarkable. IMPRESSION: 1. Acute perforated sigmoid diverticulitis. There is irregular wall thickening of the sigmoid colon likely inflammatory from diverticulitis, underlying colonic malignancy contributing to the irregular wall thickening cannot be excluded. Attention on follow-up after the patient has been treated and inflammation has resolved may be of benefit. 2. The appendix is negative. 3. Lumbar disc disease. There is a large upper L3 vertebral superior endplate 1.3 cm lytic lesion with surrounding bony sclerosis. This is most likely a large Schmorl's node from degenerative disc disease. This could be further assessed with MR imaging. Electronically signed by: Pedro Pablo Gaston MD (12/02/2019 12:04 AM) [facility] [place] SIGNED BY: PEDRO PABLO GASTON MD DATE: 12/02/19 0004 Course & Med Decision Making: Course & Med Decision Making Pertinent Labs and Imaging studies reviewed. (See chart for details) 64-year-old male presents with left lower quadrant pain. CT reveals perforated diverticulitis. I discussed his case with Dr. Up at 12:20 AM. Patient will have cultures and lactate added on and Zosyn is been ordered. Discussed the case with Dr. Smith at 1230 who will admit. Del Disclaimer: Dragon Disclaimer: This electronic medical record was generated, in whole or in part, using a voice recognition dictation system. Departure Departure Impression: Primary Impression: Perforation of sigmoid colon due to diverticulitis Additional Impression: Left lower quadrant pain Disposition: ADMITTED INPATIENT Admitting Physician: Andres Smith Referrals: ANDRES SMITH MD (PCP) RYANNE SWENSON MD Dec 01, 2019 23:35
[2019-12-01] MEDS ORDERED: KETOROLAC 15 MG/ML VIAL. IVP ONE (23:45)
[2019-12-01] MEDS ORDERED: IV NORMAL SALINE 1000ML BAG 1,000 ML IV ONE (23:45)
[2019-12-01 23:49] LABS: BILIRUBIN,URINE NEGATIVE (NEG); CLARITY,URINE CLEAR; COLOR,URINE YELLOW; NITRITE,URINE NEGATIVE (NEG); PH,URINE 5.5 (<5.0-8.0); PROTEIN,URINE NEGATIVE (NEG-TRACE)
[2019-12-01 23:51] LABS: BASO # 0.1 x10^3/uL (0.0-0.2); BASO % 1 % (0-3); EOS # 0.2 x10^3/uL (0.0-0.7); EOS % 2 % (0-3); HEMATOCRIT 43.4 % (39.0-53.0); HEMOGLOBIN 14.6 g/dL (13.0-17.5); LYMPH # 0.9 x10^3/uL (1.0-4.8); LYMPH % 11 % (24-48); MEAN CORPUSCULAR HEMOGLOBIN 29 pg (25-35); MEAN CORPUSCULAR HGB CONC 34 g/dL (31-37); MEAN CORPUSCULAR VOLUME 88 fL (79-100); MONO # 0.6 x10^3/uL (0.0-1.1); MONO % 7 % (0-9); NEUT # 6.8 x10^3/uL (1.8-7.7); NEUT % 79 % (31-73); PLATELET COUNT 263 x10^3/uL (140-400); RED BLOOD COUNT 4.97 x10^6/uL (4.30-5.70); RED CELL DISTRIBUTION WIDTH 15.3 % (11.5-14.5); WHITE BLOOD COUNT 8.6 x10^3/uL (4.0-11.0)
[2019-12-01 23:59] LABS: BACTERIA,URINE 0 /HPF (0-FEW); RBC,URINE 0 /HPF (0-2); WBC,URINE OCC /HPF (0-4)
[2019-12-02 00:01] LABS: CALCIUM 8.7 mg/dL (8.5-10.1); GFR 91.3; POTASSIUM 3.9 mmol/L (3.5-5.1)
[2019-12-02 00:07] LABS: ALBUMIN 3.8 g/dL (3.4-5.0); TOTAL BILIRUBIN 0.6 mg/dL (0.2-1.0); TOTAL PROTEIN 7.8 g/dL (6.4-8.2)
--- NOTE | 2019-12-02 00:07 | RAD ---
CT abdomen and pelvis without contrast PQRS statement: CT scans at this facility use dose reduction including either automated exposure control, iterative reconstructions, and /or weight based radiation dosing via mA and kV modification when appropriate to reduce radiation dose to as low as reasonably achievable. HISTORY: Left lower quadrant abdominal pain. Abdomen findings: Lung bases unremarkable. Lumbar disc disease, there is a large upper L3 vertebral body 1.3 cm lytic lesion breaching the superior endplate with surrounding bony sclerosis, suspected to be a large Schmorl's node from disc disease. Liver, gallbladder, spleen, adrenal glands, pancreas unremarkable. There is mild bilateral perinephric edema. No urinary calculi or hydronephrosis. Appendix is negative. Sigmoid diverticulosis, there is diverticulitis with long segment wall thickening and a perforated diverticulum with small bubbles of air and surrounding edema, there is exuberant irregular mucosal and submucosal wall thickening due to inflammation and underlying malignant lesion cannot be excluded. No pneumoperitoneum. No abdominal free fluid or obvious fluid collection to suggest abscess. Pelvis findings: No bladder calculi. Prostate, rectum and bones are unremarkable. IMPRESSION: 1. Acute perforated sigmoid diverticulitis. There is irregular wall thickening of the sigmoid colon likely inflammatory from diverticulitis, underlying colonic malignancy contributing to the irregular wall thickening cannot be excluded. Attention on follow-up after the patient has been treated and inflammation has resolved may be of benefit. 2. The appendix is negative. 3. Lumbar disc disease. There is a large upper L3 vertebral superior endplate 1.3 cm lytic lesion with surrounding bony sclerosis. This is most likely a large Schmorl's node from degenerative disc disease. This could be further assessed with MR imaging. Electronically signed by: Partha Gaston MD (12/02/2019 12:04 AM) [facility]
[2019-12-02] MEDS ORDERED: PIPERACILLIN/TAZOBACTAM 3.375 GM in IV NORMAL SALINE 50ML 50 ML IV ONE (00:30)
[2019-12-02] MEDS: IV NORMAL SALINE 1000ML BAG 1,000 ML IV SCH ×2 (00:45→05:43)
[2019-12-02] MEDS ORDERED: ONDANSETRON PF 4 MG/2 ML VIAL. IV PRN (00:45)
[2019-12-02 02:00] VITALS: BP 125/75
[2019-12-02] MEDS ORDERED: EMPA10TA PO (02:54)
[2019-12-02] MEDS ORDERED: LEVO88TA4 PO (02:54)
[2019-12-02] MEDS ORDERED: INSU100V13 SQ (03:05)
[2019-12-02 07:00] VITALS: BP 124/67
[2019-12-02] MEDS ORDERED: DEXTROSE 50% 25 GM / 50ML DISP.SYRIN. IV PRN ×2 (07:15→11:00)
--- NOTE | 2019-12-02 09:04 | PDOC2 ---
TAE BEARDEN Irena CARE MANAGEMENT ASSOCIATE 12/02/19 0904: CONSULT Date of Consult Date of Consult DATE: 12/02/19 TIME: 09:00 Reason for Consult Reason for Consult: diverticulitis Referring Physician Referring Physician: ER Identification/Chief Complaint Chief Complaint abdominal pain Source Source: Chart review, Patient History of Present Illness Reason for Visit: LLQ pain and bloating starting tuesday. NO hx of diverticulitis, normal c olonoscopy 2 years ago. NO constipation or diarrhea. Eating seemed to aggravate some Past Medical History Cardiovascular: HTN, Hyperlipidemia Pulmonary: COPD GI: GERD Heme/Onc: No pertinent hx Hepatobiliary: No pertinent hx Psych: No pertinent hx Rheumatologic: No pertinent hx Infectious disease: No pertinent hx Renal/: Chronic renal insuff Endocrine: Diabetes Past Surgical History Past Surgical History: No pertinent history Family History Family History: Diabetes, High Cholestrol, Hypertension Social History No ALCOHOL: occassional Drugs: None Current Problem List Problem List Problems Medical Problems: (1) Left lower quadrant pain Status: Acute (2) Perforation of sigmoid colon due to diverticulitis Status: Acute Current Medications Current Medications Current Medications Ketorolac Tromethamine (Toradol 15mg Vial) 15 mg 1X ONCE IVP Last administered on 12/01/19at 23:42; Start 12/01/19 at 23:45; Stop 12/01/19 at 23:46; Status DC Sodium Chloride 1,000 ml @ 1,000 mls/hr 1X ONCE IV Last administered on 12/01/19at 23:42; Start 12/01/19 at 23:45; Stop 12/02/19 at 00:44; Status DC Piperacillin Sod/ Tazobactam Sod 3.375 gm/Sodium Chloride 50 ml @ 100 mls/hr 1X ONCE IV Last administered on 12/02/19at 00:46; Start 12/02/19 at 00:30; Stop 12/02/19 at 00:59; Status DC Ondansetron HCl (Zofran) 4 mg PRN Q8HRS PRN IV NAUSEA/VOMITING; Start 12/02/19 at 00:45; Stop 12/03/19 at 00:44 Morphine Sulfate (Morphine Sulfate) 4 mg PRN Q2HR PRN IV PAIN; Start 12/02/19 at 00:45; Stop 12/03/19 at 00:44 Sodium Chloride 1,000 ml @ 125 mls/hr Q8H IV Last administered on 12/02/19at 05:43; Start 12/02/19 at 00:45; Stop 12/03/19 at 00:44 Dextrose (Dextrose 50%-Water Syringe) 12.5 gm PRN Q15MIN PRN IV SEE COMMENTS; Start 12/02/19 at 07:15 Active Scripts Active Reported Levemir (Insulin Detemir) 100 Unit/1 Ml Vial 1 Unit SQ QHS Levothyroxine Sodium 88 Mcg Tablet 1 Tab PO DAILY Jardiance (Empagliflozin) 10 Mg Tablet 10 Mg PO DAILY Trulicity (Dulaglutide) 1.5 Mg/0.5 Ml Pen.injctr 1.5 Mg SQ WEEKLY Aspirin 81 Mg Tab.chew 81 Mg PO DAILY Voltaren (Diclofenac Sodium) 100 Gm Gel..gram. 100 Gm TP PRN PRN Simvastatin 40 Mg Tablet 1 Tab PO QHS Metformin Hcl 1,000 Mg Tablet 1,000 Mg PO DAILYWBKFT Losartan Potassium (Losartan Potassium) 25 Mg Tablet 25 Mg PO DAILY Allergies Allergies: Coded Allergies: No Known Drug Allergies (Unverified , 11/18/17) ROS General: No: Chills, Other (fevers ) PSYCHOLOGICAL ROS: No: Anxiety, Depression Eyes: No Blurry vision, No Double vision HEENT: No: Heacaches, Sore Throat Hematological and Lymphatic: No: Bleeding Problems, Blood Clots Respiratory: No: Cough, Shortness of breath Cardiovascular: No Chest Pain, No Palpitations Gastrointestinal: Yes Other (see hpi) Genitourinary: No Dysuria, No Hematuria Musculoskeletal: No Joint Pain, No Muscle Pain Neurological: No Impaired Coord/balance, No Numbness/Tingling Skin: No Pruritus, No Rash Physical Exam General: Alert, Oriented X3, Cooperative HEENT: Atraumatic, PERRLA Lungs: Clear to auscultation, Normal air movement Heart: Regular rate, Normal S1, Normal S2 Abdomen: Soft, Other ( mild TTP LLQ, mild distention) Extremities: No clubbing, No cyanosis Skin: No rashes, No breakdown Neuro: Normal gait, Normal speech Psych/Mental Status: Mental status NL, Mood NL MUSCULOSKELETAL: No deformity, No swelling Vitals VITALS Vital Signs Date Time Temp Pulse Resp B/P (MAP) Pulse Ox O2 Delivery O2 Flow Rate FiO2 12/02/19 07:30 Room Air 12/02/19 07:00 98.1 81 16 124/67 (86) 98.1 12/02/19 02:00 96 Labs Labs Laboratory Tests Test 12/01/19 23:19 12/01/19 23:45 12/02/19 00:01 12/02/19 00:35 Urine Collection Type Unknown Urine Color Yellow Urine Clarity Clear Urine pH 5.5 (<5.0-8.0) Urine Specific [place] 1.025 (1.000-1.030) Urine Protein Negative mg/dL (NEG-TRACE) Urine Glucose (UA) >=1000 mg/dL (NEG) Urine Ketones (Stick) Trace mg/dL (NEG) Urine Blood Negative (NEG) Urine Nitrite Negative (NEG) Urine Bilirubin Negative (NEG) Urine Urobilinogen Dipstick 1.0 mg/dL (0.2 mg/dL) Urine Leukocyte Esterase Negative (NEG) Urine RBC 0 /HPF (0-2) Urine WBC Occ /HPF (0-4) Urine Squamous Epithelial Cells Occ /LPF Urine Bacteria 0 /HPF (0-FEW) Urine Mucus Slight /LPF White Blood Count 8.6 x10^3/uL (4.0-11.0) Red Blood Count 4.97 x10^6/uL (4.30-5.70) Hemoglobin 14.6 g/dL (13.0-17.5) Hematocrit 43.4 % (39.0-53.0) Mean Corpuscular Volume 88 fL (79-100) Mean Corpuscular Hemoglobin 29 pg (25-35) Mean Corpuscular Hemoglobin Concent 34 g/dL (31-37) Red Cell Distribution Width 15.3 % (11.5-14.5) Platelet Count 263 x10^3/uL (140-400) Neutrophils (%) (Auto) 79 % (31-73) Lymphocytes (%) (Auto) 11 % (24-48) Monocytes (%) (Auto) 7 % (0-9) Eosinophils (%) (Auto) 2 % (0-3) Basophils (%) (Auto) 1 % (0-3) Neutrophils # (Auto) 6.8 x10^3/uL (1.8-7.7) Lymphocytes # (Auto) 0.9 x10^3/uL (1.0-4.8) Monocytes # (Auto) 0.6 x10^3/uL (0.0-1.1) Eosinophils # (Auto) 0.2 x10^3/uL (0.0-0.7) Basophils # (Auto) 0.1 x10^3/uL (0.0-0.2) Sodium Level 139 mmol/L (136-145) Potassium Level 3.9 mmol/L (3.5-5.1) Chloride Level 101 mmol/L (98-107) Carbon Dioxide Level 29 mmol/L (21-32) Anion Gap 9 (6-14) Blood Urea Nitrogen 9 mg/dL (8-26) Creatinine 1.0 mg/dL (0.7-1.3) Estimated GFR (Cockcroft-Gault) 91.3 BUN/Creatinine Ratio 9 (6-20) Glucose Level 101 mg/dL (70-99) Calcium Level 8.7 mg/dL (8.5-10.1) Total Bilirubin 0.6 mg/dL (0.2-1.0) Aspartate Amino Transf (AST/SGOT) 14 U/L (15-37) Alanine Aminotransferase (ALT/SGPT) 27 U/L (16-63) Alkaline Phosphatase 123 U/L (46-116) Total Protein 7.8 g/dL (6.4-8.2) Albumin 3.8 g/dL (3.4-5.0) Albumin/Globulin Ratio 1.0 (1.0-1.7) Lipase 79 U/L (73-393) Lactic Acid Level 1.8 mmol/L (0.4-2.0) SARS-CoV-2 Antigen (Rapid) Negative (NEGATIVE) Test 12/02/19 07:20 Glucose (Fingerstick) 106 mg/dL (70-99) Laboratory Tests Test 12/01/19 23:19 12/01/19 23:45 12/02/19 00:01 12/02/19 00:35 Urine Collection Type Unknown Urine Color Yellow Urine Clarity Clear Urine pH 5.5 (<5.0-8.0) Urine Specific [place] 1.025 (1.000-1.030) Urine Protein Negative mg/dL (NEG-TRACE) Urine Glucose (UA) >=1000 mg/dL (NEG) Urine Ketones (Stick) Trace mg/dL (NEG) Urine Blood Negative (NEG) Urine Nitrite Negative (NEG) Urine Bilirubin Negative (NEG) Urine Urobilinogen Dipstick 1.0 mg/dL (0.2 mg/dL) Urine Leukocyte Esterase Negative (NEG) Urine RBC 0 /HPF (0-2) Urine WBC Occ /HPF (0-4) Urine Squamous Epithelial Cells Occ /LPF Urine Bacteria 0 /HPF (0-FEW) Urine Mucus Slight /LPF White Blood Count 8.6 x10^3/uL (4.0-11.0) Red Blood Count 4.97 x10^6/uL (4.30-5.70) Hemoglobin 14.6 g/dL (13.0-17.5) Hematocrit 43.4 % (39.0-53.0) Mean Corpuscular Volume 88 fL (79-100) Mean Corpuscular Hemoglobin 29 pg (25-35) Mean Corpuscular Hemoglobin Concent 34 g/dL (31-37) Red Cell Distribution Width 15.3 % (11.5-14.5) Platelet Count 263 x10^3/uL (140-400) Neutrophils (%) (Auto) 79 % (31-73) Lymphocytes (%) (Auto) 11 % (24-48) Monocytes (%) (Auto) 7 % (0-9) Eosinophils (%) (Auto) 2 % (0-3) Basophils (%) (Auto) 1 % (0-3) Neutrophils # (Auto) 6.8 x10^3/uL (1.8-7.7) Lymphocytes # (Auto) 0.9 x10^3/uL (1.0-4.8) Monocytes # (Auto) 0.6 x10^3/uL (0.0-1.1) Eosinophils # (Auto) 0.2 x10^3/uL (0.0-0.7) Basophils # (Auto) 0.1 x10^3/uL (0.0-0.2) Sodium Level 139 mmol/L (136-145) Potassium Level 3.9 mmol/L (3.5-5.1) Chloride Level 101 mmol/L (98-107) Carbon Dioxide Level 29 mmol/L (21-32) Anion Gap 9 (6-14) Blood Urea Nitrogen 9 mg/dL (8-26) Creatinine 1.0 mg/dL (0.7-1.3) Estimated GFR (Cockcroft-Gault) 91.3 BUN/Creatinine Ratio 9 (6-20) Glucose Level 101 mg/dL (70-99) Calcium Level 8.7 mg/dL (8.5-10.1) Total Bilirubin 0.6 mg/dL (0.2-1.0) Aspartate Amino Transf (AST/SGOT) 14 U/L (15-37) Alanine Aminotransferase (ALT/SGPT) 27 U/L (16-63) Alkaline Phosphatase 123 U/L (46-116) Total Protein 7.8 g/dL (6.4-8.2) Albumin 3.8 g/dL (3.4-5.0) Albumin/Globulin Ratio 1.0 (1.0-1.7) Lipase 79 U/L (73-393) Lactic Acid Level 1.8 mmol/L (0.4-2.0) SARS-CoV-2 Antigen (Rapid) Negative (NEGATIVE) Test 12/02/19 07:20 Glucose (Fingerstick) 106 mg/dL (70-99) Assessment/Plan Assessment/Plan Diverticulitis stable exam, labs, vss continue abx, bowel rest KLAUDIA GOMEZ MD 12/02/19 1409: CONSULT Assessment/Plan Assessment/Plan Pt seen and examined. Agree with Ms. Bearden's note Pt feels better then admission, no previous episodes. Colonoscopy wnl a few years ago abd soft, min TTP LLQ will try clears Thanks for consult! TAE BEARDEN APRN Dec 02, 2019 09:04 KLAUDIA GOMEZ MD Dec 02, 2019 14:09
[2019-12-02] MEDS: MORPHINE SULFATE 4 MG/ML VIAL. IV PRN ×2 (10:36→17:30)
[2019-12-02 11:00] VITALS: BP 117/67
--- NOTE | 2019-12-02 11:06 | PDOC ---
Provider Note Date of Service: DATE: 12/02/19 TIME: 11:04 Provider Note [id number] Justifications for Admission Other Justification ANDRES SMITH MD Dec 02, 2019 11:06
--- NOTE | 2019-12-02 11:15 | HP ---
ADMIT DATE: 12/02/2019 CHIEF COMPLAINT: Abdominal pain. HISTORY OF PRESENT ILLNESS: A 64-year-old black male well controlled diabetic and healthy, developed left lower quadrant pain about a day prior to admission and the pain became notably worse. CT scan showed evidence of a small perforation in the left sigmoid diverticulitis. He has been given Zosyn and feels somewhat better at this time. He has never had diverticulitis and his last colonoscopy in 2017 was unremarkable to his knowledge. No other recent symptoms including hematochezia, vomiting or other complaints. PAST MEDICAL HISTORY: Well controlled diabetic, last hemoglobin A1c 6.9 in July of this year. TSH was unremarkable as well. No other significant medical problems. ALLERGIES: No drug allergies. SOCIAL HISTORY: He is , nonsmoker, nondrinker, physically active. FAMILY HISTORY: Unremarkable. REVIEW OF SYSTEMS: No other complaints. OBJECTIVE: ENT: All within normal limits. NECK: No masses, nodes or bruits. LUNGS: Clear. CARDIOVASCULAR: Regular rate. No murmur. ABDOMEN: Tender and mild guarding in left lower quadrant with reduced bowel sounds. Right side of the abdomen is benign. EXTREMITIES: Excellent pedal and radial pulses. NEUROLOGIC: Unremarkable. ASSESSMENT: Perforated sigmoid diverticulitis of abrupt onset. He is a well-controlled diabetic with controlled hypothyroidism as well and appears to be healthy otherwise. PLAN: Continue bowel rest, IV Zosyn and sliding scale insulin. ANDRES SMITH MD DR: KIRA/ernesto JOB#: [id number] / [id number]
[2019-12-02] MEDS: LEVOTHYROXINE 88 MCG TABLET PO SCH (11:22)
[2019-12-02] MEDS: POTASSIUM CL 20MEQ D5-0.45NACL 1,000 ML IV SCH (11:22)
[2019-12-02] MEDS: PIPERACILLIN/TAZOBACTAM 3.375 GM in IV NORMAL SALINE 50ML 50 ML IV SCH ×2 (11:23→17:30)
[2019-12-02] MEDS: INSULIN LISPRO 300 UNITS/3 ML VIAL. SQ SCH ×2 (12:00→17:00)
[2019-12-02 15:00] VITALS: BP 130/74
[2019-12-02 19:19] VITALS: BP 135/84
[2019-12-02 22:53] VITALS: BP 130/61
[2019-12-03] MEDS: PIPERACILLIN/TAZOBACTAM 3.375 GM in IV NORMAL SALINE 50ML 50 ML IV SCH ×5 (00:20→23:40)
[2019-12-03] MEDS: POTASSIUM CL 20MEQ D5-0.45NACL 1,000 ML IV SCH ×2 (01:22→13:49)
[2019-12-03 02:26] VITALS: BP 144/90
[2019-12-03 06:08] LABS: HEMOGLOBIN A1C 6.9 % (4.8-5.6)
[2019-12-03 07:15] VITALS: BP 127/69
--- NOTE | 2019-12-03 08:27 | PDOC ---
Provider Note Date of Service: DATE: 12/03/19 TIME: 08:23 Provider Note vss, no temp, cultures neg- pain and bloating less, less tender also- cont iv zosyn , repeat ct re abscess at some point Justifications for Admission Other Justification ANDRES SMITH MD Dec 03, 2019 08:27
[2019-12-03] MEDS ORDERED: KETOROLAC 30 MG/ML VIAL. IVP PRN (08:30)
[2019-12-03] MEDS: LEVOTHYROXINE 88 MCG TABLET PO SCH (08:47)
[2019-12-03] MEDS: INSULIN LISPRO 300 UNITS/3 ML VIAL. SQ SCH ×3 (08:54→17:00)
[2019-12-03 10:34] VITALS: BP 128/78
--- NOTE | 2019-12-03 12:18 | PDOC ---
SURGICAL PROGRESS NOTE DATE: 12/03/19 TIME: 12:16 Subjective feels well no pain tolerating clears Vital Signs Vital Signs Date Time Temp Pulse Resp B/P (MAP) Pulse Ox O2 Delivery O2 Flow Rate FiO2 12/03/19 10:34 98.7 67 18 128/78 (95) 97 Room Air 98.7 I&O Intake and Output 12/03/19 07:00 Intake Total 700 ml Output Total 1050 ml Balance -350 ml Intake Oral 700 ml Output Urine Total 1050 ml # Voids 2 General: Alert, Oriented X3, Cooperative Abdomen: Soft, No tenderness Labs Laboratory Tests Test 12/01/19 23:19 12/01/19 23:45 12/02/19 00:01 12/02/19 00:35 Urine Collection Type Unknown Urine Color Yellow Urine Clarity Clear Urine pH 5.5 (<5.0-8.0) Urine Specific [place] 1.025 (1.000-1.030) Urine Protein Negative mg/dL (NEG-TRACE) Urine Glucose (UA) >=1000 mg/dL (NEG) Urine Ketones (Stick) Trace mg/dL (NEG) Urine Blood Negative (NEG) Urine Nitrite Negative (NEG) Urine Bilirubin Negative (NEG) Urine Urobilinogen Dipstick 1.0 mg/dL (0.2 mg/dL) Urine Leukocyte Esterase Negative (NEG) Urine RBC 0 /HPF (0-2) Urine WBC Occ /HPF (0-4) Urine Squamous Epithelial Cells Occ /LPF Urine Bacteria 0 /HPF (0-FEW) Urine Mucus Slight /LPF White Blood Count 8.6 x10^3/uL (4.0-11.0) Red Blood Count 4.97 x10^6/uL (4.30-5.70) Hemoglobin 14.6 g/dL (13.0-17.5) Hematocrit 43.4 % (39.0-53.0) Mean Corpuscular Volume 88 fL (79-100) Mean Corpuscular Hemoglobin 29 pg (25-35) Mean Corpuscular Hemoglobin Concent 34 g/dL (31-37) Red Cell Distribution Width 15.3 % (11.5-14.5) Platelet Count 263 x10^3/uL (140-400) Neutrophils (%) (Auto) 79 % (31-73) Lymphocytes (%) (Auto) 11 % (24-48) Monocytes (%) (Auto) 7 % (0-9) Eosinophils (%) (Auto) 2 % (0-3) Basophils (%) (Auto) 1 % (0-3) Neutrophils # (Auto) 6.8 x10^3/uL (1.8-7.7) Lymphocytes # (Auto) 0.9 x10^3/uL (1.0-4.8) Monocytes # (Auto) 0.6 x10^3/uL (0.0-1.1) Eosinophils # (Auto) 0.2 x10^3/uL (0.0-0.7) Basophils # (Auto) 0.1 x10^3/uL (0.0-0.2) Sodium Level 139 mmol/L (136-145) Potassium Level 3.9 mmol/L (3.5-5.1) Chloride Level 101 mmol/L (98-107) Carbon Dioxide Level 29 mmol/L (21-32) Anion Gap 9 (6-14) Blood Urea Nitrogen 9 mg/dL (8-26) Creatinine 1.0 mg/dL (0.7-1.3) Estimated GFR (Cockcroft-Gault) 91.3 BUN/Creatinine Ratio 9 (6-20) Glucose Level 101 mg/dL (70-99) Hemoglobin A1c 6.9 % (4.8-5.6) Calcium Level 8.7 mg/dL (8.5-10.1) Total Bilirubin 0.6 mg/dL (0.2-1.0) Aspartate Amino Transf (AST/SGOT) 14 U/L (15-37) Alanine Aminotransferase (ALT/SGPT) 27 U/L (16-63) Alkaline Phosphatase 123 U/L (46-116) Total Protein 7.8 g/dL (6.4-8.2) Albumin 3.8 g/dL (3.4-5.0) Albumin/Globulin Ratio 1.0 (1.0-1.7) Lipase 79 U/L (73-393) Lactic Acid Level 1.8 mmol/L (0.4-2.0) Coronavirus (PCR) Not detected (Not Detected) SARS-CoV-2 Antigen (Rapid) Negative (NEGATIVE) Test 12/02/19 07:20 12/02/19 11:28 12/02/19 17:05 10/4/20 19:51 Glucose (Fingerstick) 106 mg/dL (70-99) 102 mg/dL (70-99) 147 mg/dL (70-99) 145 mg/dL (70-99) Test 12/03/19 07:19 12/03/19 11:35 Glucose (Fingerstick) 172 mg/dL (70-99) 133 mg/dL (70-99) Laboratory Tests Test 12/02/19 17:05 12/02/19 19:51 12/03/19 07:19 12/03/19 11:35 Glucose (Fingerstick) 147 mg/dL (70-99) 145 mg/dL (70-99) 172 mg/dL (70-99) 133 mg/dL (70-99) Problem List Problems Medical Problems: (1) Left lower quadrant pain Status: Acute (2) Perforation of sigmoid colon due to diverticulitis Status: Acute Assessment/Plan stable will advance diet Justicifation of Admission Dx: Justifications for Admission: Justification of Admission Dx: Yes Comments: diverticulitis TAE BEARDEN COMMUNITY DEVELOPMENT PLANNER Dec 03, 2019 12:18
--- NOTE | 2019-12-03 14:03 | NUR ---
SS following for discharge planning. SS reviewed pt chart and discussed with pt RN. Pt is from home with spouse and is currently on room air. Pt on IV Zosyn and fill liquid diet. SS will continue to follow for discharge planning.
[2019-12-03 14:33] VITALS: BP 131/80
--- NOTE | 2019-12-03 19:03 | NUR ---
PATIENT DAUGHTER CHANGED MINE AND WANTING TO TAKE PATIENT HOME NO HOSPICE.
[2019-12-03 19:30] VITALS: BP 136/71
[2019-12-03 23:05] VITALS: BP 134/80
[2019-12-04 03:05] VITALS: BP 127/79
[2019-12-04] MEDS: POTASSIUM CL 20MEQ D5-0.45NACL 1,000 ML IV SCH (03:17)
[2019-12-04] MEDS: PIPERACILLIN/TAZOBACTAM 3.375 GM in IV NORMAL SALINE 50ML 50 ML IV SCH ×4 (05:09→23:34)
[2019-12-04 07:00] VITALS: BP 119/75
[2019-12-04] MEDS: INSULIN LISPRO 300 UNITS/3 ML VIAL. SQ SCH ×3 (08:00→17:00)
--- NOTE | 2019-12-04 08:25 | PDOC ---
Provider Note Date of Service: DATE: 12/04/19 TIME: 08:24 Provider Note vss, bp ok off med, glucose same- a1c 6.9- cults neg- less tender , day 4 iv zosyn, repeat ct per surgery , doing well on cl Justifications for Admission Other Justification ANDRES SMITH MD Dec 04, 2019 08:25
[2019-12-04] MEDS: LEVOTHYROXINE 88 MCG TABLET PO SCH (08:54)
[2019-12-04 10:59] VITALS: BP 127/72
[2019-12-04 12:06] LABS: BASO % 1 % (0-3); EOS # 0.2 x10^3/uL (0.0-0.7); EOS % 5 % (0-3); HEMATOCRIT 40.5 % (39.0-53.0); HEMOGLOBIN 13.7 g/dL (13.0-17.5); LYMPH # 0.8 x10^3/uL (1.0-4.8); LYMPH % 20 % (24-48); MEAN CORPUSCULAR HEMOGLOBIN 29 pg (25-35); MEAN CORPUSCULAR HGB CONC 34 g/dL (31-37); MEAN CORPUSCULAR VOLUME 87 fL (79-100); MONO # 0.3 x10^3/uL (0.0-1.1); MONO % 9 % (0-9); NEUT # 2.6 x10^3/uL (1.8-7.7); NEUT % 66 % (31-73); PLATELET COUNT 267 x10^3/uL (140-400); RED BLOOD COUNT 4.65 x10^6/uL (4.30-5.70); RED CELL DISTRIBUTION WIDTH 14.9 % (11.5-14.5); WHITE BLOOD COUNT 3.9 x10^3/uL (4.0-11.0)
--- NOTE | 2019-12-04 12:12 | PDOC ---
TA[facility]ARD[facility] [employer] T[employer] WORKER 12/04/19 1212: SURGICAL PROGRESS NOTE DATE: 12/04/19 TIME: 12:10 Subjective doing well no pain no n/v Vital Signs Vital Signs Date Time Temp Pulse Resp B/P (MAP) Pulse Ox O2 Delivery O2 Flow Rate FiO2 12/04/19 10:59 98.1 67 21 127/72 (90) 97 Room Air 98.1 I&O Intake and Output 12/04/19 07:00 Intake Total 3010 ml Output Total 3550 ml Balance -540 ml Intake Oral 1850 ml Other 1160 ml Output Urine Total 3550 ml # Voids 1 General: Alert, Oriented X3, Cooperative Abdomen: Soft, No tenderness Labs Laboratory Tests Test 12/02/19 17:05 12/02/19 19:51 12/03/19 07:19 12/03/19 11:35 Glucose (Fingerstick) 147 mg/dL (70-99) 145 mg/dL (70-99) 172 mg/dL (70-99) 133 mg/dL (70-99) Test 12/03/19 21:06 12/04/19 07:09 12/04/19 11:41 12/04/19 11:50 Glucose (Fingerstick) 152 mg/dL (70-99) 143 mg/dL (70-99) 165 mg/dL (70-99) White Blood Count 3.9 x10^3/uL (4.0-11.0) Red Blood Count 4.65 x10^6/uL (4.30-5.70) Hemoglobin 13.7 g/dL (13.0-17.5) Hematocrit 40.5 % (39.0-53.0) Mean Corpuscular Volume 87 fL (79-100) Mean Corpuscular Hemoglobin 29 pg (25-35) Mean Corpuscular Hemoglobin Concent 34 g/dL (31-37) Red Cell Distribution Width 14.9 % (11.5-14.5) Platelet Count 267 x10^3/uL (140-400) Neutrophils (%) (Auto) 66 % (31-73) Lymphocytes (%) (Auto) 20 % (24-48) Monocytes (%) (Auto) 9 % (0-9) Eosinophils (%) (Auto) 5 % (0-3) Basophils (%) (Auto) 1 % (0-3) Neutrophils # (Auto) 2.6 x10^3/uL (1.8-7.7) Lymphocytes # (Auto) 0.8 x10^3/uL (1.0-4.8) Monocytes # (Auto) 0.3 x10^3/uL (0.0-1.1) Eosinophils # (Auto) 0.2 x10^3/uL (0.0-0.7) Basophils # (Auto) 0.0 x10^3/uL (0.0-0.2) Laboratory Tests Test 12/03/19 21:06 12/04/19 07:09 12/04/19 11:41 12/04/19 11:50 Glucose (Fingerstick) 152 mg/dL (70-99) 143 mg/dL (70-99) 165 mg/dL (70-99) White Blood Count 3.9 x10^3/uL (4.0-11.0) Red Blood Count 4.65 x10^6/uL (4.30-5.70) Hemoglobin 13.7 g/dL (13.0-17.5) Hematocrit 40.5 % (39.0-53.0) Mean Corpuscular Volume 87 fL (79-100) Mean Corpuscular Hemoglobin 29 pg (25-35) Mean Corpuscular Hemoglobin Concent 34 g/dL (31-37) Red Cell Distribution Width 14.9 % (11.5-14.5) Platelet Count 267 x10^3/uL (140-400) Neutrophils (%) (Auto) 66 % (31-73) Lymphocytes (%) (Auto) 20 % (24-48) Monocytes (%) (Auto) 9 % (0-9) Eosinophils (%) (Auto) 5 % (0-3) Basophils (%) (Auto) 1 % (0-3) Neutrophils # (Auto) 2.6 x10^3/uL (1.8-7.7) Lymphocytes # (Auto) 0.8 x10^3/uL (1.0-4.8) Monocytes # (Auto) 0.3 x10^3/uL (0.0-1.1) Eosinophils # (Auto) 0.2 x10^3/uL (0.0-0.7) Basophils # (Auto) 0.0 x10^3/uL (0.0-0.2) Problem List Problems Medical Problems: (1) Left lower quadrant pain Status: Acute (2) Perforation of sigmoid colon due to diverticulitis Status: Acute Assessment/Plan afebrile clinically stable cbc pending hopefully can Dc in AM on oral abx--I dont think repeat ct at this point is necessary--i will review with Dr Up will need GI FU in 4-6 weeks for colonoscopy Justicifation of Admission Dx: Justifications for Admission: Justification of Admission Dx: Yes KLAUDIA UP MD 12/04/19 1337: SURGICAL PROGRESS NOTE Assessment/Plan Pt seen and examined. Agree with Ms. Bearden's note Pt feels much better, linda diet, passing stools abd soft, ND, NTTP OK to ADAT, OK to d/c home in AM with f/u with GI. TAE BEARDEN APRN Dec 04, 2019 12:12 KLAUDIA UP MD Dec 04, 2019 13:37
--- NOTE | 2019-12-04 13:57 | NUR ---
SS following up with discharge planning. SS reviewed pt chart and discussed with pt RN. Pt is currently on room air. Pt on IV Zosyn. GI soft diet. Per surgery okay to discharge in the morning. Discharge plan is to home when medically ready. SS will continue to follow for discharge planning.
[2019-12-04 15:00] VITALS: BP 129/72
[2019-12-04 19:40] VITALS: BP 138/72
[2019-12-04 23:10] VITALS: BP 132/78
[2019-12-05 03:40] VITALS: BP 124/75
[2019-12-05] MEDS: PIPERACILLIN/TAZOBACTAM 3.375 GM in IV NORMAL SALINE 50ML 50 ML IV SCH (04:44)
[2019-12-05 07:00] VITALS: BP 108/64
--- NOTE | 2019-12-05 08:39 | PDOC ---
Provider Note Date of Service: DATE: 12/05/19 TIME: 08:38 Provider Note [id number] Justifications for Admission Other Justification ANDRES SMITH MD Dec 05, 2019 08:39
[2019-12-05] MEDS: LEVOTHYROXINE 88 MCG TABLET PO SCH (08:47)
--- NOTE | 2019-12-05 10:13 | DS ---
DATE OF DISCHARGE: 12/05/2019 HOSPITAL SUMMARY: A 64-year-old black male admitted with left lower quadrant abdominal pain and evidence of microperforation of the left sigmoid colon from diverticulitis with irregular wall thickening present on CT. Laboratory studies were all unremarkable. COVID serology was negative. Hemoglobin A1c very good at 6.9 and blood cultures had no growth. He remained afebrile throughout the hospital stay as he was on IV Zosyn throughout the stay. Bowel rest followed by advancing diet and is able to get off his IV fluids. He is feeling much better, was able to transition to oral medication and will be discharged and followed as an outpatient. FINAL DIAGNOSIS: Acute sigmoid diverticulitis with microperforation. OPERATIONS, PROCEDURES, COMPLICATIONS: None. CONSULTATIONS: Dr. Curry's group. DISPOSITION: Augmentin 875 mg twice a day for 1 more week. Home medicines all remain the same. Office followup with Dr. Saavedra and Dr. Styles in 1 week regarding general state of other medical problems and vaccinations, and will need to consider another colonoscopy in 2-3 months, although apparently he had one about 2 years ago. ANDRES SAAVEDRA MD DR: KIRA/ernetso JOB#: [id number] / [id number]
[2019-12-05 11:00] VITALS: BP 115/65
--- NOTE | 2019-12-05 11:30 | NUR ---
Discharge instructions given to patient regarding follow up appointments. Contact information given. Pt informed antibiotics have been called into his pharmacy. Education given over diet and diverticulitis. Pt verbalizes understanding.
== END 2019-12-05 11:55 | disposition home or self-care (01) | DRG 392 ==
LOC: ER 22:18 → 2 SOUTH 12-02 01:06
PROVIDERS: ADMIT Family Medicine; ATTEND Family Medicine
DX: K57.20 Diverticulitis of large intestine with perforation and abscess without bleeding (principal); E03.9 Hypothyroidism, unspecified; I10 Essential (primary) hypertension; E11.9 Type 2 diabetes mellitus without complications; E78.00 Pure hypercholesterolemia, unspecified; Z20.828 Contact with and (suspected) exposure to other viral communicable diseases; Z87.891 Personal history of nicotine dependence
CPT/HCPCS: 36415; 74176; 80053; 81001; 82962; 83036; 83605; 83690; 85025; 87040; 87426; 96361; 96374; 99285; J1815; J1885; J2270; J2543; J3480; J7030; G0378; U0003-CS